=== PATIENT | female | born 1960 | race Hispanic/Latino ===

== ENCOUNTER 2020-10-05 11:09 | Emergency (ER) | payer OTHER ==
[2020-10-05] MEDS ORDERED: ACETAMINOPHEN EXTRA STRENGTH 500 MG TABLET ONE (11:36)
== END 2020-10-05 12:52 | disposition home or self-care (01) ==
LOC: EDH 11:09
DX: S60.222A Contusion of left hand, initial encounter (principal); E11.9 Type 2 diabetes mellitus without complications; I10 Essential (primary) hypertension; E78.00 Pure hypercholesterolemia, unspecified; Z90.49 Acquired absence of other specified parts of digestive tract; Z98.890 Other specified postprocedural states